=== PATIENT | female | born 1945 ===

== ENCOUNTER → 2020-09-03 20:50 | Outpatient (CLI) | payer SELFPAY ==
[2020-09-03 21:19] LABS: BASOPHILS 0.2 % (0-2); EOSINOPHILS 3.2 % (0-7); HEMATOCRIT 28.5 % (36.0-48.0); HEMOGLOBIN 9.5 g/dL (12-16); LYMPHOCYTES 13.3 % (15-50); MCHC 33.5 g/dL (31.0-37.0); MCV 86.4 fL (80.0-100.0); MEAN PLATELET VOLUME 6.4 fL (7.4-10.4); MONOCYTES 6.4 % (2-11); NEUTROPHILS 76.9 % (40-80); PLATELET COUNT 255 10x3/uL (130-400); RBC 3.29 10x6/uL (4.00-5.40); RDW 14.3 % (11.5-14.5); WBC 6.5 10x3/uL (4.8-10.8)
[2020-09-03 21:47] LABS: C-REACTIVE PROTEIN 30.9 mg/dL (0.0-0.9)
[2020-09-03 22:17] LABS: ERYTHROCYTE SEDIMENTATION RATE 84 mm/hr (0-30)
== END | disposition home or self-care (01) ==
LOC: D.LABREF 20:50
PROVIDERS: ATTEND Internal Medicine Infectious Disease
DX: T84.51XA Infection and inflammatory reaction due to internal right hip prosthesis, initial encounter (principal); Z96.651 Presence of right artificial knee joint; Z79.2 Long term (current) use of antibiotics; Z91.81 History of falling

== ENCOUNTER → 2020-09-11 20:27 | Outpatient (CLI) | payer MEDICARE ==
[2020-09-11 20:38] LABS: C-REACTIVE PROTEIN 3.7 mg/dL (0.0-0.9); CREATININE - SERUM 0.9 mg/dL (0.6-1.3)
[2020-09-11 20:48] LABS: BASOPHILS 0.3 % (0-2); EOSINOPHILS 2.1 % (0-7); HEMATOCRIT 35.6 % (36.0-48.0); HEMOGLOBIN 11.4 g/dL (12-16); LYMPHOCYTES 18.4 % (15-50); MCH 28.5 pg (26.0-34.0); MCHC 32.2 g/dL (31.0-37.0); MCV 88.7 fL (80.0-100.0); MEAN PLATELET VOLUME 6.1 fL (7.4-10.4); MONOCYTES 6.8 % (2-11); NEUTROPHILS 72.4 % (40-80); RBC 4.01 10x6/uL (4.00-5.40); RDW 14.8 % (11.5-14.5)
[2020-09-11 20:51] LABS: PLATELET COUNT 477 10x3/uL (130-400)
[2020-09-11 21:49] LABS: ERYTHROCYTE SEDIMENTATION RATE 57 mm/hr (0-30)
== END | disposition home or self-care (01) ==
LOC: D.LABREF 20:27
PROVIDERS: ATTEND Internal Medicine Infectious Disease
DX: T84.51XA Infection and inflammatory reaction due to internal right hip prosthesis, initial encounter (principal)